=== PATIENT | female | born 2000 | race Caucasian/White ===

== ENCOUNTER 2022-01-07 11:56 | Emergency (ER) | payer MEDICAID ==
[~2022-01-07] VITALS: Ht 165.1 cm; Wt 82.0 kg
[2022-01-07 12:25] VITALS: BP 94/53
[2022-01-07] MEDS ORDERED: BACITRACIN ZINC OINT UDPKT TOP ONE (13:45)
== END 2022-01-07 14:28 | disposition home or self-care (01) ==
LOC: ER 11:56
DX: S01.111A Laceration without foreign body of right eyelid and periocular area, initial encounter (principal); S00.12XA Contusion of left eyelid and periocular area, initial encounter; Y07.59 Other non-family member, perpetrator of maltreatment and neglect; Y00.XXXA Assault by blunt object, initial encounter; Y93.89 Activity, other specified; Y92.018 Other place in single-family (private) house as the place of occurrence of the external cause
CPT/HCPCS: 99282